=== PATIENT | female | born 1955 | race Caucasian/White ===

== ENCOUNTER → 2016-05-05 | Day surgery (SDC) | payer OTHER ==
[~2016-05-05] VITALS: Ht 167.6 cm; Wt 73.9 kg
[~2016-05-05] MED LIST: CLARITIN10 M1 PO; SINGULAIR10 M1 PO; VIVELLE-DOT1 EAC2 ACW
--- NOTE | 2016-05-05 09:36 | Operative Report ---
Operative/Inv Procedure Report Surgery Date: 05/05/16 Name of Procedure: IUD REMOVAL, HYSTEROSCOPY, DILATION AND CURETTAGE VIA MYOSURE DEVICE, IUD REINSERTION Pre-Operative Diagnosis: POSTMENOPAUSAL BLEEDING, ON HRT (ESTROGEN PATCH AND MIRENA IUD) Post-Operative Diagnosis: SAME, THICKENED ENDOMETRIUM Estimated Blood Loss: scant Surgeon/Freelance Operator: LAILA SCOTT DO Anesthesia: TIVA IV Fluids: 850ML Urine Output: NA Drains: NONE Specimens: IUD ENDOMETRIAL AND ENDOCERVICAL CURETTINGS Complications: NONE Condition: GOOD Operative Indication: POSTMENOPAUSAL BLEEDING ON HRT (ESTROGEN PATCH AND MIRENAIUD), THICK ENDOMETRIUM , HISTORY OF ENDOMETRIAL POLYP Operative/Procedure Note Note: PATIENT WAS TAKEN TO THE OPERATING ROOM WHERE ANESTHESIA WAS OBTAINED WITHOUT DIFFICULTY. SHE WAS PLACED IN THE DORSAL LITHOTOMY POSITION AND EXAMINED UNDER ANESTHESIA. SHE HAD A SMALL ANTEVERTED UTERUS WITHOUT MASS. A [employer] SPECULUM WAS PLACED IN THE VAGINA AND PAP SMEAR WAS OBTAINED. SHE WAS THEN PREPPED AND DRAPED IN THE USUAL STERILE FASHION. A GRAVES SPECULUM WAS PLACED IN THE VAGINA. PARACERVICAL BLOCK WAS PERFORMED WITH 10ML OF 1 PERCENT LIDOCAINE PLAIN. ANTERIOR LIP OF THE CERVIX WAS GRASPED WITH A SINGLE TOOTH TENACULUM. MIRENA IUD WAS REMOVED WITH RING FORCEPS. CERVIX WAS PROGRESSIVELY DILATED TO 17FRENCH WAS MICHAELLE DILATORS. ENDOCERVICAL CANAL AND UTERUS DEVIATED TO THE RIGHT. A 6MM HEGAR DILATOR WAS THEN PASSED. UTERUS SOUNDED TO 7CM. MYOSURE HYSTEROSCOPE WAS INTRODUCED WITHOUT DIFFICULTY AND THE UTERINE CAVITY WAS DISTENDED VISUALIZED WITHOUT DIFFICULTY USING NORMAL SALINE DISTENTION MEDIA. "SHAGGY" , SLIGHTLY THICKENED ENDOMETRIUM WAS NOTED ANTERIORLY AND POSTERIORLY WHICH SOMEWHAT OBSCURED HER RIGHT TUBAL OSTIA. LEFT TUBAL OSTIA WAS VISUALIZED WITHOUT DIFFICULTY. NO POLYPS OR FIBROIDS WERE NOTED. CURETTAGE WAS PERFORMED GLOBALLY USING THE MYOSURE DEVICE. AT THE END OF THE PROCEDURE, ENDOMETRIUM WAS THEN GLOBALLY THIN AND BILATERAL TUBAL OSTIA WERE VISUALIZED WITHOUT DIFFICULTY . HYSTEROSCOPE WAS REMOVED. MIRENA IUD WAS REINSERTED WITHOUT DIFFICULTY. INSTRUMENTS WERE REMOVED FROM THE UTERUS, CERVIX, AND VAGINA. HEMOSTASIS OF TENACULUM SITES WERE ACHIEVED WITH SILVER NITRATE. ALL SPONGE , LAP AND NEEDLE COUNTS WERE CORRECT TIMES TWO. THE PATIENT WAS TAKEN TO THE RECOVERY AREA IN GOOD CONDITION. Findings: EXAM UNDER ANESTHESIA: SMALL ANTEVERTED UTERUS WITHOUT MASS TORTUOUS ENDOCERVICAL CANAL, DEVIATED TO RIGHT UTERUS SOUNDED TO 7CM INTRAOPERATIVE FINDINGS: NORMAL APPEARING BILATERAL TUBAL OSTIA. SOMEWHAT "SHAGGY" THICKENED ENDOMETRIUM ANTERIORLY AND POSTERIORLY Discharge Disposition: PACU CC: LAILA SCOTT DO
== END ==
LOC: STS 01:57
DX: N95.0 Postmenopausal bleeding (principal); R93.8 Abnormal findings on diagnostic imaging of other specified body structures; N85.4 Malposition of uterus; Z97.5 Presence of (intrauterine) contraceptive device; Z79.890 Hormone replacement therapy
CPT/HCPCS: 88305; G0123; J0131; J1100; J2250; J2405